=== PATIENT | male | born 1970 | race Caucasian/White ===

== ENCOUNTER 2022-08-29 16:01 | Emergency (ER) | payer BC ==
[2022-08-29 16:55] LABS: HEMOGLOBIN 15.4 gm/dl (14.0-17.5); RED BLOOD COUNT 5.07 M/UL (4.20-5.50)
[2022-08-29 17:17] LABS: BUN/CREATININE RATIO 19 (0-10)
[2022-08-29] MEDS ORDERED: ZOFRAN 4 MG TAB4 MG PO (20:42)
[2022-08-29] MEDS ORDERED: HYDROCODON-ACE1 EAC4 PO (20:42)
== END 2022-08-29 22:08 | disposition home or self-care (01) ==
LOC: ER1 16:01
DX: N20.1 Calculus of ureter (principal); N23 Unspecified renal colic; J45.909 Unspecified asthma, uncomplicated; I10 Essential (primary) hypertension
CPT/HCPCS: 80053; 81001; 83690; 85025; 86140; 96374; 99284; J2405